=== PATIENT | female | born 1945 | race African-American/Black ===

== ENCOUNTER 2018-04-12 13:34 | Observation (INO) | payer OTHER ==
--- NOTE | 2018-04-12 14:14 | PDOC ---
History of Present Illness - General Chief Complaint: Chest Pain Stated Complaint: CHEST PAIN Time Seen by Provider: 04/12/18 14:13 Past History - Past Medical History COPD: No - Immunization History Immunization Up to Date: Yes - Suicide/Smoking/Psychosocial Hx Smoking History: Never smoked Hx Alcohol Use: No Drug/Substance Use Hx: No Substance Use Type: None *Physical Exam - Vital Signs Last Vital Signs Temp Pulse Resp BP Pulse Ox 98.6 F 95 H 20 190/89 H 100 04/12/18 13:42 04/12/18 13:42 04/12/18 13:42 04/12/18 13:42 04/12/18 13:42
--- NOTE | 2018-04-12 14:17 | PDOC ---
History of Present Illness - General Chief Complaint: Chest Pain Stated Complaint: CHEST PAIN Time Seen by Provider: 04/12/18 14:13 History Source: Patient Exam Limitations: No Limitations - History of Present Illness Initial Comments: 73 y/o female presenting to [facility] ER complaining of chest pain, nausea/vomiting, abdominal pain, and increased urinary frequency since Monday (09 Apr 2018 - 4 days). Chest pain originates at left anterior chest and radiates to left shoulder blade. It is made worse by palpation and movement of left upper extremity. It has been unchanged for the past four days. Denies history of similar. Vomited once on Monday with persistent nausea. Emesis described food particulates without blood or bile. Has been able to drink normally but taking small amount of solid food. Endorses epigastric and LUQ abdominal pain. Reports a chronic history of vague abdominal pain after eating certain foods. Endorses generalized fatigue, worse in the last few days. Possible CHF diagnosis at last stress test (Dec 2017). Did not follow up with her dye range tender or PCP following test. Prescribed Lasix but has not been taking it. Endorses decreased exertional tolerance and chronic bilateral leg swelling. Denies weight gain, orthopnea, paroxysmal nocturnal dyspnea Historically received care at [facility]. PCP: Dr. Carlyle Hoff Hx: - Never Smoker Medical Hx: - Possible CHF? - Benign positional vertigo - HTN - Chronic Bronchitis - Osteoarthritis - Heart Murmur, unable to recall type - GERD - Thyroid Nodules Surgical Hx: - Hysterectomy - Thyroid nodulectomy Past History - Past Medical History Allergies/Adverse Reactions: Allergies Allergy/AdvReac Type Severity Reaction Status Date / Time codeine Allergy Difficulty Verified 04/12/18 15:01 Breathing Home Medications: Ambulatory Orders Aspirin [ASA -] 81 mg PO DAILY 04/12/18 Budesonide/Formeterol Fumarate [SYMBICORT 160/4.5mcg -] 1 inh PO BID 04/12/18 Furosemide [Lasix] 20 mg PO DAILY 04/12/18 Lisinopril 10 mg PO DAILY 04/12/18 Nifedipine ER [Procardia Xl -] 30 mg PO DAILY 04/12/18 COPD: No - Immunization History Immunization Up to Date: Yes - Suicide/Smoking/Psychosocial Hx Smoking History: Never smoked Hx Alcohol Use: No Drug/Substance Use Hx: No Substance Use Type: None Review of Systems - Review of Systems Able to Perform ROS?: Yes Comments:: In addition to that documented in the HPI above, the additional ROS was obtained : Constitutional: Denies fevers, chills, diaphoresis, or syncope Eyes: Denies vision changes ENMT: Denies sore throat CV: Per HPI Resp: Denies acute SOB GI: Endorses vomiting. Denies diarrhea : Endorses urinary frequency. Denies dysuria, hematuria, or vaginal discharge. MSK: Denies recent trauma Skin: Denies new rashes Neuro: Denies new numbness, tingling, weakness, or headache Endocrine: Endorses polyuria. Denies polydipsia. Heme: Denies bleeding disorders *Physical Exam - Vital Signs Last Vital Signs Temp Pulse Resp BP Pulse Ox 98.6 F 95 H 20 190/89 H 100 04/12/18 13:42 04/12/18 13:42 04/12/18 13:42 04/12/18 13:42 04/12/18 13:42 - Physical Exam Comments: Constitutional: Adult female in no acute distress. Obese body habitus. Found semi-fowlers in hospital bed. Alert and oriented x4. Answered all questions appropriately and completely. Speech was non-labored, non-pressured. HEENT: Normocephalic. No obvious external signs of trauma. Hearing grossly normal. No nasal discharge. Neck is supple. Cardiovascular: Regular rate and regular rhythm. Systolic murmur loudest with inspiration. No rubs, clicks, or gallops. Peripheral pulses: Radial pulses full. No JVD. Respiratory: Breathing unlabored. Equal chest rise and fall. Clear to auscultation bilaterally. No stridor, no wheezing, no rhonchi. Gastrointestinal: abdomen is subjectively tender in LUQ and epigastric region ( no grimace, guarding, or withdrawal). Otherwise soft and non-distended. No pulsatile masses. No overlying skin lesions or obvious signs of trauma. Neuro: Alert and oriented. Moving all four extremities spontaneously. Gait: walking with cane. Observed walking through the department. Skin: Warm, dry, and intact. No bruising, rashes, or other lesions. No palpable nodules. Lymphatics: No cervical, supraclavicular, epitrochlear or inguinal nodes palpated. : No R or L CVA tenderness. Psych: Affect: appropriate. Mood: normal. ED Treatment Course - LABORATORY CBC & Chemistry Diagram: 04/12/18 15:16 04/12/18 15:16 Medical Decision Making - Medical Decision Making *Reviewed vital signs, nursing notes, and prior visit documentation (if available). 73 y/o female complaining of chest pain, abdominal pain, increased urinary frequency. Moderately suspicion for ACS. Afebrile. Vitals remarkable for hypertension. Physical exam as described above. D/D ACS, acute CHF exacerbation , arrhythmia, pneumonia, pulmonary edema, GERD, gastritis, pancreatitis, hepatitis, UTI. HEART Score for Major Cardiac Events from [employer] on 04/12/2018 RESULT SUMMARY: 4 points Moderate Score (4-6 points) Risk of MACE of 12-16.6%. INPUTS: History > 1 = Moderately suspicious EKG > 0 = Normal Age > 2 = ?65 Risk factors > 1 = 1-2 risk factors Initial troponin > 0 = ?normal limit EKG: Sinus rhythm with a ventricular rate of 96 bpm. Possible left axis deviation. Normal intervals. No ST segment elevation or depression. No hyperacute T waves. No pathologic Q waves. CXR unremarkable for acute cardiopulmonary process. No blunting of the costophrenic angles. Low suspicion for CHF or pulmonary edema. CBC unremarkable for anemia or leukocytosis. CMP unremarkable for electrolyte derangement. LFTs not elevated. BUN and Cr at baseline. eGFR of 54. Lipase not elevated. Low suspicion for pancreatitis. UA unremarkable for pyuria, leukocyte esterase, or nitrites. Low suspicion for UTI. Culture pending. 16:34 Remains hypertensive. Will order home Nifedipine as she normally takes this at this time. Given pts heart score and moderately suspicion ACS story, will admit pt for chest pain rule out. 18:04 Telephone consult with ANA Lu. Agrees to admit pt to telemetry on obs status for Dr. Cervantes. *DC/Admit/Observation/Transfer Diagnosis at time of Disposition: Chest pain in adult - Discharge Dispostion Condition at time of disposition: Stable Decision to Admit order: Yes - Referrals - Patient Instructions - Post Discharge Activity
[2018-04-12] MEDS ORDERED: LACTATED RINGERS SOLUTION 1000 ML INFUS.BAG IV ONE ×2 (14:50)
[2018-04-12] MEDS ORDERED: ONDANSETRON 4 MG/2 ML VIAL IVPUSH ONE (14:50)
[2018-04-12 15:26] LABS: BASO % 2.3 % (0-2.0); EOS % 1.6 % (0-4.5); HEMATOCRIT 37.7 % (32.4-45.2); HEMOGLOBIN 12.5 GM/dL (10.7-15.3); LYMPH % 26.8 % (8-40); MCH 30.5 pg (25.7-33.7); MCHC 33.2 g/dl (32.0-36.0); MEAN CELL VOLUME 91.8 fl (80-96); MEAN PLT VOLUME 8.1 fl (7.5-11.1); MONO % 6.1 % (3.8-10.2); NEUT % 63.2 % (42.8-82.8); PLATELET COUNT 205 K/MM3 (134-434); RDW 13.2 % (11.6-15.6); WHITE BLOOD COUNT 4.2 K/mm3 (4.0-10.0)
[2018-04-12] MEDS ORDERED: ONDANSETRON 4 MG/2 ML VIAL ONE (15:33)
[2018-04-12 15:48] LABS: URINE APPEARANCE CLEAR; URINE BILIRUBIN NEGATIVE (<2.0 mg/dL); URINE COLOR COLORLESS; URINE GLUCOSE (UA) NEGATIVE (NEGATIVE); URINE KETONE NEGATIVE (NEGATIVE); URINE LEUK ESTERASE NEGATIVE (NEGATIVE); URINE NITRITE NEGATIVE (NEGATIVE); URINE PROTEIN NEGATIVE (NEGATIVE); URINE UROBILINOGEN NEGATIVE mg/dL (0.2-1.0)
--- NOTE | 2018-04-12 16:00 | PDOC ---
Attending Attestation - Resident Resident Name: Steve Sarabia - HPI HPI: 04/12/18 16:35 Pt presents to the ED complaining of chest pain, nausea and vomiting and presyncope that started 4 days ago. Denies fever. Complains of vert mild epigastric pain. History of - Physicial Exam PE: 04/12/18 16:36 agree with resident exam. Patient is alert and oriented and in no acute distress. Heart has regular rate and rhythm. Lungs are clear. Abdomen is non tender, non distended. - Medical Decision Making 04/12/18 16:39 Pt presents to the ED complaining of nausea, vomiting and chest pain. Also complains of presyncope. Differential included ACS, less likely gastroenteritis , biliary disease, pancreatitis. Chemistries are normal and troponin is negative. EKG shows no evidence of acute ischemia. HEART score is 4. Will treat with ASA and admit for r/o ACS. BP is elevated. Will treat with nifedipine and reassess.
[2018-04-12 16:05] LABS: ALBUMIN 3.7 g/dl (3.4-5.0); ALK PHOS 62 U/L (45-117); ANION GAP 6 MMOL/L (8-16); BILIRUBIN,TOTAL 0.4 mg/dL (0.2-1); BLOOD UREA NITROGEN 12 mg/dL (7-18); CALCIUM 8.9 mg/dL (8.5-10.1); CHLORIDE 106 mmol/L (98-107); CO2 28 mmol/L (21-32); GLUCOSE,RANDOM 102 mg/dL (74-106); LIPASE 152 U/L (73-393); MAGNESIUM 1.8 mg/dL (1.8-2.4); PHOSPHOROUS 3.1 mg/dL (2.5-4.9); POTASSIUM 3.1 mmol/L (3.5-5.1); SGOT/AST 16 U/L (15-37); SGPT/ALT 19 U/L (13-61); SODIUM 140 mmol/L (136-145); TOT PROT 7.6 g/dl (6.4-8.2)
[2018-04-12] MEDS ORDERED: ASPIRIN 81 MG CHEWABLE TABLETS PO ONE (16:26)
[2018-04-12] MEDS ORDERED: NIFEdipine E.R. 30 MG TABLET (FP) PO ONE (16:34)
[2018-04-12] MEDS ORDERED: ASPIRIN 81 MG CHEWABLE TABLETS ONE (16:42)
[2018-04-12] MEDS ORDERED: NIFEdipine E.R. 30 MG TABLET (FP) ONE (16:42)
--- NOTE | 2018-04-12 17:59 | HP ---
CHIEF COMPLAINT: chest pain, nausea/vomiting, lightheaded PCP: Dr. Carlyle Petersen HISTORY OF PRESENT ILLNESS: Patient is a 73 year old female with a significant past medical history of CHF, hypertension, systolic heart murmur, GERD, thyroid nodule with nodule removal. She presents to the ED today with c/o of chest pain, nausea/vomiting, lightheadedness, epigastric pain and increased urinary frequency all since Monday. She reports decreased exercise tolerance. She has not sought any medical attention for these symptoms. She describes the chest pain as pressure that radiates to her left shoulder and epigastric region. Pain is constant since last 3 days. She also states that since Monday she has been experiencing vomiting with nausea and unable to keep down any foods. She is able to take down some fluids. She endorses fatigue and lightheadedness and feels like she is dehydrated. Denies any vomiting up of blood or bile. She reports that her last stress test was on December 2017 and was told that there are some "problems" found on the stress test. She did not follow up with her die maker bench stamping nor her PCP after the test. States she has been prescribed Lasix but has not taken it daily. Denies weight gain, orthopnea, paroxysmal nocturnal dyspnea. ER course was notable for: (1) trop negative (2) chest xray, abnormal: fullness right superior mediastinum, possible adenopathy versus thyroid enlargement.large heart, right tracheal deviation (3) bnp 160 PAST MEDICAL HISTORY: PAST SURGICAL HISTORY: Social History: Smoking: denies Alcohol: denies Drugs: denies Family History: Allergies codeine Allergy (Verified 04/12/18 15:01) Difficulty Breathing HOME MEDICATIONS: Home Medications Medication Instructions Recorded Aspirin [ASA -] 81 mg PO DAILY 04/12/18 Budesonide/Formeterol Fumarate 1 inh PO BID 04/12/18 [SYMBICORT 160/4.5mcg -] Furosemide [Lasix] 20 mg PO DAILY 04/12/18 Lisinopril 10 mg PO DAILY 04/12/18 Nifedipine ER [Procardia Xl -] 30 mg PO DAILY 04/12/18 PHYSICAL EXAMINATION Vital Signs - 24 hr 04/12/18 04/12/18 04/12/18 13:42 16:34 17:54 Temperature 98.6 F Pulse Rate 95 H Pulse Rate [ 76 64 Apical] Respiratory 20 16 16 Rate Blood Pressure 190/89 H Blood Pressure 184/88 H 162/82 [Right] O2 Sat by Pulse 100 100 100 Oximetry (%) GENERAL: Awake, alert, and fully oriented, in no acute distress. HEAD: Normal with no signs of trauma. EYES: Pupils equal, round and reactive to light, extraocular movements intact, sclera anicteric, conjunctiva clear. No lid lag. EARS, NOSE, THROAT: Ears normal, nares patent, oropharynx clear without exudates. Moist mucous membranes. NECK: Normal range of motion, supple without lymphadenopathy, JVD, or masses. LUNGS: Breath sounds equal, clear to auscultation bilaterally. No wheezes, and no crackles. No accessory muscle use. HEART: systolic heart murmur ABDOMEN: Soft, nontender, not distended, normoactive bowel sounds, no guarding, no rebound, no masses. No hepatomegaly or splenomegaly. MUSCULOSKELETAL: Normal range of motion at all joints. No bony deformities or tenderness. No CVA tenderness. UPPER EXTREMITIES: 2+ pulses, warm, well-perfused. No cyanosis. No clubbing. No peripheral edema. LOWER EXTREMITIES: mild bilateral ankle edema NEUROLOGICAL: Normal speech PSYCHIATRIC: Cooperative. Good eye contact. Appropriate mood and affect. SKIN: Warm, dry, normal turgor, no rashes or lesions noted, normal capillary refill. Laboratory Results - last 24 hr 04/12/18 04/12/18 04/12/18 15:16 15:16 15:16 WBC 4.2 RBC 4.10 Hgb 12.5 Hct 37.7 MCV 91.8 MCH 30.5 MCHC 33.2 RDW 13.2 Plt Count 205 MPV 8.1 Absolute Neuts (auto) 2.7 Neutrophils % 63.2 Lymphocytes % 26.8 Monocytes % 6.1 Eosinophils % 1.6 Basophils % 2.3 H Nucleated RBC % 0 Sodium 140 Potassium 3.1 L Chloride 106 Carbon Dioxide 28 Anion Gap 6 L BUN 12 Creatinine 1.0 Creat Clearance w eGFR 54.05 Random Glucose 102 Calcium 8.9 Phosphorus 3.1 Magnesium 1.8 Total Bilirubin 0.4 AST 16 ALT 19 Alkaline Phosphatase 62 Troponin I < 0.02 Total Protein 7.6 Albumin 3.7 Lipase 152 Urine Color Colorless Urine Appearance Clear Urine pH 7.0 Ur Specific [place] 1.003 L Urine Protein Negative Urine Glucose (UA) Negative Urine Ketones Negative Urine Blood Negative Urine Nitrite Negative Urine Bilirubin Negative Urine Urobilinogen Negative Ur Leukocyte Esterase Negative ASSESSMENT/PLAN: Patient is a 73 year old female with a significant past medical history of CHF, hypertension, systolic heart murmur, GERD, thyroid nodule with nodule removal. She presents to the ED today with c/o of chest pain, nausea/vomiting, lightheadedness, epigastric pain and increased urinary frequency all since Monday. She reports decreased exercise tolerance. imaging chest xray, abnormal: fullness right superior mediastinum, possible adenopathy versus thyroid enlargement.large heart, right tracheal deviation Cardiology Rule out acs Trend troponins Echo lipid panel [id number] monitor on tele cardiology consult TSH Abdominal discomfort/pain Start on clears start PPI advance diet as tolerated fen full code
[2018-04-12 18:20] LABS: N-TERMINAL BNP 160.2 pg/ml (5-450)
[2018-04-12] MEDS ORDERED: PANTOPRAZOLE 40 MG TABLET (FP) PO ONE (19:08)
[2018-04-12] MEDS ORDERED: POTASSIUM CHLORIDE ORAL LIQUID 20 MEQ/15 ML PO ONE (19:45)
[2018-04-12] MEDS ORDERED: PANTOPRAZOLE 40 MG TABLET (FP) ONE (19:49)
[2018-04-12] MEDS ORDERED: POTASSIUM CHLORIDE TABS 20 MEQ TABLET.ER (FP) PO ONE (19:49)
[2018-04-12 20:34] VITALS: BMI 38.3
[2018-04-12] MEDS ORDERED: FLU VACCINE QUAD 60 MCG/0.5 ML (MDV 18-19) IM ONE (20:37)
[2018-04-12] MEDS: BUDESONIDE/FORMETEROL FUMARATE 160/4.5 mcg INHALER IH SCH (21:09)
--- NOTE | 2018-04-13 09:30 | ECHO ---
Name: PRECIOUS BROCK Exam:Adult Echocardiogram Study Date: 04/13/2018 06:59 AM Age: 73 yrs Reason For Study: LIGHTNESS,SOB Height: 59 in Weight: 196 lb BSA: 1.8 m2 MMode/2D Measurements & Calculations IVSd: 1.1 cm Ao root diam: 3.3 cm LVIDd: 5.2 cm LA dimension: 3.8 cm LVIDs: 3.1 cm ACS: 1.7 cm LVPWd: 0.90 cm IVSs: 1.3 cm LVPWs: 1.2 cm EDV(Teich): 128.6 ml ESV(Teich): 38.3 ml Doppler Measurements & Calculations MV E max ayush: 92.1 cm/sec Ao V2 max: 158.4 cm/sec MV A max ayush: 102.7 cm/sec Ao max P.0 mmHg MV E/A: 0.90 Ao V2 mean: 103.4 cm/sec Ao mean P.8 mmHg Ao V2 VTI: 36.0 cm AI P1/2t: 512.9 msec AI max ayush: 508.0 cm/sec MR max ayush: 466.9 cm/sec AI max P.5 mmHg MR max P.3 mmHg AI dec slope: 290.0 cm/sec2 TR max ayush: 303.6 cm/sec PI end-d ayush: 85.5 cm/sec TR max P.9 mmHg Med Peak E' Ayush: 13.5 cm/sec Med E/e': 6.8 Lat Peak E' Ayush: 7.2 cm/sec Lat E/e': 12.7 Left Ventricle Left ventricular systolic function is normal. Ejection Fraction = 50-55%. Right Ventricle The right ventricle is normal in size and function. Atria Normal left and right atrial size and function. Mitral Valve There is mild mitral annular calcification. There is no mitral valve stenosis. There is mild mitral regurgitation. Tricuspid Valve The tricuspid valve is normal in structure and function. There is moderate tricuspid regurgitation. R ight ventricular systolic pressure is elevated at 30-40mmHg. Aortic Valve There is mild aortic sclerosis.;. No hemodynamically significant valvular aortic stenosis. Mild aorti c regurgitation. Pulmonic Valve The pulmonic valve is not well seen, but is grossly normal. There is no pulmonic valvular stenosis. M ild pulmonic valvular regurgitation. Great Vessels The aortic root is normal size. Pericardium/Pleura Trivial pericardial effusion not hemodynamically significant. Interpretation Summary Left ventricular systolic function is normal. Ejection Fraction = 50-55%. The right ventricle is normal in size and function. There is mild mitral annular calcification. There is mild mitral regurgitation. There is moderate tricuspid regurgitation. Right ventricular systolic pressure is elevated at 30-40mmHg. There is mild aortic sclerosis.; Mild aortic regurgitation. Trivial pericardial effusion not hemodynamically significant MD Lacy *Aristides 04/13/2018 09:30 AM
[2018-04-13] MEDS: BUDESONIDE/FORMETEROL FUMARATE 160/4.5 mcg INHALER IH SCH (09:37)
[2018-04-13] MEDS ORDERED: ASPIRIN 81 MG CHEWABLE TABLETS PO SCH (10:00)
[2018-04-13] MEDS ORDERED: NIFEdipine E.R. 30 MG TABLET (FP) PO SCH (10:00)
[2018-04-13] MEDS ORDERED: LISINOPRIL 10 MG TABLET (FP) PO SCH (10:00)
[2018-04-13] MEDS ORDERED: FUROSEMIDE 20 MG TABLET (FP) PO SCH (10:00)
[2018-04-13 10:20] LABS: BASO % 1.4 % (0-2.0); EOS % 3.9 % (0-4.5); HEMATOCRIT 38.1 % (32.4-45.2); HEMOGLOBIN 12.4 GM/dL (10.7-15.3); LYMPH % 37.2 % (8-40); MCH 30.2 pg (25.7-33.7); MCHC 32.5 g/dl (32.0-36.0); MEAN CELL VOLUME 92.7 fl (80-96); MEAN PLT VOLUME 8.3 fl (7.5-11.1); MONO % 8.1 % (3.8-10.2); NEUT % 49.4 % (42.8-82.8); PLATELET COUNT 204 K/MM3 (134-434); RBC 4.11 M/mm3 (3.60-5.2); RDW 13.2 % (11.6-15.6); WHITE BLOOD COUNT 4.5 K/mm3 (4.0-10.0)
[2018-04-13 11:06] LABS: ALBUMIN 3.7 g/dl (3.4-5.0); ALK PHOS 59 U/L (45-117); ANION GAP 10 MMOL/L (8-16); BILIRUBIN,TOTAL 0.7 mg/dL (0.2-1); BLOOD UREA NITROGEN 12 mg/dL (7-18); CHLORIDE 105 mmol/L (98-107); CHOLESTEROL 274 mg/dL (50-200); CO2 27 mmol/L (21-32); CREATININE 1.2 mg/dL (0.55-1.3); GLUCOSE,RANDOM 94 mg/dL (74-106); HDL CHOLESTEROL 55 mg/dL (40-60); MAGNESIUM 1.8 mg/dL (1.8-2.4); POTASSIUM 3.3 mmol/L (3.5-5.1); SGOT/AST 11 U/L (15-37); SGPT/ALT 17 U/L (13-61); SODIUM 142 mmol/L (136-145); TOT PROT 7.3 g/dl (6.4-8.2); TRIGLYCERIDES 79 mg/dL (0-150)
--- NOTE | 2018-04-13 11:24 | CON.CARD ---
Cardiology Consult (text) - Consultation Consultation Note: cc: n/v, epigastric pain, dizzy hpi: 73 f hx dchf, htn here with n/v, epigastric pain, dizzy. Yesterday started to feel dizzy then had n/v and epigastric burning pain. No sob palps loc pnd orthopnea le edema. Today still with upset stomach. pmh: per hpi psh: nc social: no tob fam: no premature cad, scd ros: per hpi; no fever, diarrhea, gib hematuria dysuria muscle pain wt loss meds: Home Medications Medication Instructions Recorded Aspirin [ASA -] 81 mg PO DAILY 04/12/18 Budesonide/Formeterol Fumarate 1 inh PO BID 04/12/18 [SYMBICORT 160/4.5mcg -] Furosemide [Lasix] 20 mg PO DAILY 04/12/18 Lisinopril 10 mg PO DAILY 04/12/18 Nifedipine ER [Procardia Xl -] 30 mg PO DAILY 04/12/18 pe: Vital Signs Period Temp Pulse Resp BP Sys/Hyde Pulse Ox Last 24 Hr 97.2 F-98.6 F 60-95 16-20 136-190/66-104 96-100 nad no jvd rrr s1s2 +m, no r/g aaox3 cta bl nl eff no le e/c/c pos dp pt no carotid bruits no diaphoresis jaundice abd mild tender in epigastric area, nd pos bs +chest wall tenderness Laboratory Last Values WBC 4.5 K/mm3 (4.0-10.0) 04/13/18 09:46 RBC 4.11 M/mm3 (3.60-5.2) 04/13/18 09:46 Hgb 12.4 GM/dL (10.7-15.3) 04/13/18 09:46 Hct 38.1 % (32.4-45.2) 04/13/18 09:46 MCV 92.7 fl (80-96) 04/13/18 09:46 MCH 30.2 pg (25.7-33.7) 04/13/18 09:46 MCHC 32.5 g/dl (32.0-36.0) 04/13/18 09:46 RDW 13.2 % (11.6-15.6) 04/13/18 09:46 Plt Count 204 K/MM3 (134-434) 04/13/18 09:46 MPV 8.3 fl (7.5-11.1) 04/13/18 09:46 Absolute Neuts (auto) 2.2 K/mm3 (1.5-8.0) 04/13/18 09:46 Neutrophils % 49.4 % (42.8-82.8) D 04/13/18 09:46 Lymphocytes % 37.2 % (8-40) D 04/13/18 09:46 Monocytes % 8.1 % (3.8-10.2) 04/13/18 09:46 Eosinophils % 3.9 % (0-4.5) D 04/13/18 09:46 Basophils % 1.4 % (0-2.0) 04/13/18 09:46 Nucleated RBC % 0 % (0-0) 04/13/18 09:46 Sodium 142 mmol/L (136-145) 04/13/18 09:40 Potassium 3.3 mmol/L (3.5-5.1) L 04/13/18 09:40 Chloride 105 mmol/L (98-107) 04/13/18 09:40 Carbon Dioxide 27 mmol/L (21-32) 04/13/18 09:40 Anion Gap 10 MMOL/L (8-16) 04/13/18 09:40 BUN 12 mg/dL (7-18) 04/13/18 09:40 Creatinine 1.2 mg/dL (0.55-1.3) 04/13/18 09:40 Creat Clearance w eGFR 43.80 (>60) 04/13/18 09:40 Random Glucose 94 mg/dL (74-106) 04/13/18 09:40 Hemoglobin A1c % 5.7 % (4.2-6.3) 04/13/18 09:40 Calcium 9.0 mg/dL (8.5-10.1) 04/13/18 09:40 Phosphorus 3.1 mg/dL (2.5-4.9) 04/12/18 15:16 Magnesium 1.8 mg/dL (1.8-2.4) 04/13/18 09:40 Total Bilirubin 0.7 mg/dL (0.2-1) 04/13/18 09:40 AST 11 U/L (15-37) L 04/13/18 09:40 ALT 17 U/L (13-61) 04/13/18 09:40 Alkaline Phosphatase 59 U/L (45-117) 04/13/18 09:40 Troponin I < 0.02 ng/ml (0.00-0.05) 04/13/18 02:15 B-Natriuretic Peptide 160.2 pg/ml (5-450) 04/12/18 15:16 Total Protein 7.3 g/dl (6.4-8.2) 04/13/18 09:40 Albumin 3.7 g/dl (3.4-5.0) 04/13/18 09:40 Triglycerides 79 mg/dL (0-150) 04/13/18 09:40 Cholesterol 274 mg/dL (50-200) H 04/13/18 09:40 Total LDL Cholesterol 203 mg/dL (5-100) H 04/13/18 09:40 HDL Cholesterol 55 mg/dL (40-60) 04/13/18 09:40 Lipase 152 U/L (73-393) 04/12/18 15:16 TSH 0.70 uIU/ml (0.358-3.74) 04/13/18 09:46 Urine Color Colorless 04/12/18 15:16 Urine Appearance Clear 04/12/18 15:16 Urine pH 7.0 (5.0-8.0) 04/12/18 15:16 Ur Specific [place] 1.003 (1.010-1.035) L 04/12/18 15:16 Urine Protein Negative (NEGATIVE) 04/12/18 15:16 Urine Glucose (UA) Negative (NEGATIVE) 04/12/18 15:16 Urine Ketones Negative (NEGATIVE) 04/12/18 15:16 Urine Blood Negative (NEGATIVE) 04/12/18 15:16 Urine Nitrite Negative (NEGATIVE) 04/12/18 15:16 Urine Bilirubin Negative (<2.0 mg/dL) 04/12/18 15:16 Urine Urobilinogen Negative mg/dL (0.2-1.0) 04/12/18 15:16 Ur Leukocyte Esterase Negative (NEGATIVE) 04/12/18 15:16 ecg: sr, nl intervals, no ischemic changes cxr: clear lungs echo 03/2018: nl lv/rv, mild mr, mod tr, mild ar, mild pr, rvsp 30-40 tele: sr a/p: 73 f hx dchf, htn here with n/v, epigastric pain, dizzy. epigastric pain, n/v, dizzy: -does not seem cardiac, more GI related -trops neg x3, ecg and echo unremarkable -reproducible pain on palpation of abd and chest -pt reports abnl stress test with her cardio at [facility] few mos ago, plan had been med management per pt, continue outpt f/u. chronic diastolic chf: -stable, cont po lasix htn: -cont home meds cardiac rivera stable
[2018-04-13] MEDS ORDERED: POTASSIUM CHLORIDE TABS 20 MEQ TABLET.ER (FP) PO ONE (15:30)
--- NOTE | 2018-04-13 15:30 | DS ---
Physical Exam: SUBJECTIVE: Patient seen and examined OBJECTIVE: Vital Signs Period Temp Pulse Resp BP Sys/Hyde Pulse Ox Last 24 Hr 97.2 F-98.5 F 60-76 16-20 136-188/66-104 96-100 PHYSICAL EXAM GENERAL: The patient is awake, alert, and fully oriented, in no acute distress. HEAD: Normal with no signs of trauma. EYES: PERRL, extraocular movements intact, sclera anicteric, conjunctiva clear. ENT: Ears normal, nares patent, oropharynx clear without exudates, moist mucous membranes. NECK: Trachea midline, full range of motion, supple. LUNGS: Breath sounds equal, clear to auscultation bilaterally, no wheezes, no crackles, no accessory muscle use. HEART: Regular rate and rhythm, S1, S2 without murmur, rub or gallop. ABDOMEN: Soft, nontender, nondistended, normoactive bowel sounds, no guarding, no rebound, no hepatosplenomegaly, no masses. EXTREMITIES: 2+ pulses, warm, well-perfused, no edema. NEUROLOGICAL: Cranial nerves II through XII grossly intact. Normal speech, gait not observed. PSYCH: Normal mood, normal affect. SKIN: Warm, dry, normal turgor, no rashes or lesions noted. LABS Laboratory Results - last 24 hr 04/12/18 04/12/18 04/12/18 15:16 15:16 20:55 WBC RBC Hgb Hct MCV MCH MCHC RDW Plt Count MPV Absolute Neuts (auto) Neutrophils % Lymphocytes % Monocytes % Eosinophils % Basophils % Nucleated RBC % Sodium 140 Potassium 3.1 L Chloride 106 Carbon Dioxide 28 Anion Gap 6 L BUN 12 Creatinine 1.0 Creat Clearance w eGFR 54.05 Random Glucose 102 Hemoglobin A1c % Calcium 8.9 Phosphorus 3.1 Magnesium 1.8 Total Bilirubin 0.4 AST 16 ALT 19 Alkaline Phosphatase 62 Troponin I < 0.02 < 0.02 B-Natriuretic Peptide 160.2 Total Protein 7.6 Albumin 3.7 Triglycerides Cholesterol Total LDL Cholesterol HDL Cholesterol Lipase 152 TSH Urine Color Colorless Urine Appearance Clear Urine pH 7.0 Ur Specific [place] 1.003 L Urine Protein Negative Urine Glucose (UA) Negative Urine Ketones Negative Urine Blood Negative Urine Nitrite Negative Urine Bilirubin Negative Urine Urobilinogen Negative Ur Leukocyte Esterase Negative 11/16/18 11/16/18 11/16/18 02:15 09:40 09:40 WBC RBC Hgb Hct MCV MCH MCHC RDW Plt Count MPV Absolute Neuts (auto) Neutrophils % Lymphocytes % Monocytes % Eosinophils % Basophils % Nucleated RBC % Sodium 142 Potassium 3.3 L Chloride 105 Carbon Dioxide 27 Anion Gap 10 BUN 12 Creatinine 1.2 Creat Clearance w eGFR 43.80 Random Glucose 94 Hemoglobin A1c % 5.7 Calcium 9.0 Phosphorus Magnesium 1.8 Total Bilirubin 0.7 AST 11 L ALT 17 Alkaline Phosphatase 59 Troponin I < 0.02 B-Natriuretic Peptide Total Protein 7.3 Albumin 3.7 Triglycerides 79 Cholesterol 274 H Total LDL Cholesterol 203 H HDL Cholesterol 55 Lipase TSH Urine Color Urine Appearance Urine pH Ur Specific [place] Urine Protein Urine Glucose (UA) Urine Ketones Urine Blood Urine Nitrite Urine Bilirubin Urine Urobilinogen Ur Leukocyte Esterase 04/13/18 04/13/18 09:46 09:46 WBC 4.5 RBC 4.11 Hgb 12.4 Hct 38.1 MCV 92.7 MCH 30.2 MCHC 32.5 RDW 13.2 Plt Count 204 MPV 8.3 Absolute Neuts (auto) 2.2 Neutrophils % 49.4 D Lymphocytes % 37.2 D Monocytes % 8.1 Eosinophils % 3.9 D Basophils % 1.4 Nucleated RBC % 0 Sodium Potassium Chloride Carbon Dioxide Anion Gap BUN Creatinine Creat Clearance w eGFR Random Glucose Hemoglobin A1c % Calcium Phosphorus Magnesium Total Bilirubin AST ALT Alkaline Phosphatase Troponin I B-Natriuretic Peptide Total Protein Albumin Triglycerides Cholesterol Total LDL Cholesterol HDL Cholesterol Lipase TSH 0.70 Urine Color Urine Appearance Urine pH Ur Specific [place] Urine Protein Urine Glucose (UA) Urine Ketones Urine Blood Urine Nitrite Urine Bilirubin Urine Urobilinogen Ur Leukocyte Esterase HOSPITAL COURSE: Date of Admission:04/12/18 Date of Discharge: 04/13/18 Discharge Summary Reason For Visit: CHEST PAIN Current Active Problems Chest pain in adult (Acute) Condition: Improved - Instructions Disposition: HOME - Home Medications Comprehensive Discharge Medication List: Ambulatory Orders Aspirin [ASA -] 81 mg PO DAILY 04/12/18 Budesonide/Formeterol Fumarate [SYMBICORT 160/4.5mcg -] 1 inh PO BID 04/12/18 Furosemide [Lasix] 20 mg PO DAILY 04/12/18 Lisinopril 10 mg PO DAILY 04/12/18 Nifedipine ER [Procardia Xl -] 30 mg PO DAILY 04/12/18
[2018-04-13] MEDS ORDERED: RANITIDINE HCL 150 MG TABLET (FP) PO ONE (15:45)
[2018-04-13 22:53] VITALS: BP 148/78; PULSE 64; TEMP 98
--- NOTE | 2018-04-16 23:51 | EKG ---
Test Reason : Blood Pressure : / mmHG Vent. Rate : 096 BPM Atrial Rate : 096 BPM P-R Int : 188 ms QRS Dur : 088 ms QT Int : 366 ms P-R-T Axes : 055 -35 047 degrees QTc Int : 462 ms NORMAL SINUS RHYTHM POSSIBLE LEFT ATRIAL ENLARGEMENT LEFT AXIS DEVIATION LEFT VENTRICULAR HYPERTROPHY ABNORMAL ECG WHEN COMPARED WITH ECG OF 26-JAN-1999 11:47, NO SIGNIFICANT CHANGE WAS FOUND Confirmed by GANESH CRUMP, ROBINSON ([id number]) on 04/16/2018 11:51:10 PM Referred By: Confirmed By:ROBINSON ANDERSEN MD
== END 2018-04-13 19:40 | disposition home or self-care (01) ==
LOC: JER 13:34 → JERBED 17:44 → J4W 20:37
PROVIDERS: ADMIT Internal Medicine; ATTEND Nurse Practitioner Family
PROC: 3E0337Z Introduction of Electrolytic and Water Balance Substance into Peripheral Vein, Percutaneous Approach (ICD-10-PCS; principal; 2018-04-12)
PROC: 3E033GC Introduction of Other Therapeutic Substance into Peripheral Vein, Percutaneous Approach (ICD-10-PCS; 2018-04-12)
DX: R07.89 Other chest pain (principal); I11.0 Hypertensive heart disease with heart failure; I50.32 Chronic diastolic (congestive) heart failure; R01.1 Cardiac murmur, unspecified; M19.90 Unspecified osteoarthritis, unspecified site; K21.9 Gastro-esophageal reflux disease without esophagitis; Z90.710 Acquired absence of both cervix and uterus; Z88.6 Allergy status to analgesic agent; Z79.82 Long term (current) use of aspirin
CPT/HCPCS: 36415; 71046-TC-FY; 80053; 80061; 81003; 83036; 83690; 83721; 83735; 83880; 84100; 84443; 84484; 85025; 87086; 93005; 93010; 93306-TC; 96374; 99284-25; G0378

== ENCOUNTER 2019-01-09 15:37 | Emergency (ER) | payer OTHER ==
--- NOTE | 2019-01-09 15:41 | PDOC ---
Rapid Medical Evaluation Time Seen by Provider: 01/09/19 15:40 Medical Evaluation: Allergies Allergy/AdvReac Type Severity Reaction Status Date / Time codeine Allergy Difficulty Verified 04/12/18 15:01 Breathing 01/09/19 15:40 HPI: Right knee pain x1 day PE: No gross deficits ORDERS: nothing Discharge Disposition - Diagnosis Knee pain - Referrals - Patient Instructions - Post Discharge Activity
[2019-01-09 15:47] VITALS: BP 185/78; PULSE 87; TEMP 98.4; BMI 40.4
[2019-01-09] MEDS ORDERED: KETOROLAC TROMETHAMINE 30 MG/1 ML VIAL IM ONE (17:36)
[2019-01-09] MEDS ORDERED: ACETAMINOPHEN 325 MG TABLET (FP) PO ONE (17:36)
[2019-01-09] MEDS ORDERED: ACETAMINOPHEN 325 MG TABLET (FP) ONE (17:40)
[2019-01-09] MEDS ORDERED: KETOROLAC TROMETHAMINE 30 MG/1 ML VIAL ONE (17:41)
--- NOTE | 2019-01-09 17:41 | PDOC ---
History of Present Illness - General Chief Complaint: Pain Stated Complaint: Rt LEG PAIN Time Seen by Provider: 01/09/19 15:40 History Source: Patient - History of Present Illness Occurred: reports: other Severity: Yes: severe Lower Extremity Pain Location: right: knee Past History - Past Medical History Allergies/Adverse Reactions: Allergies Allergy/AdvReac Type Severity Reaction Status Date / Time codeine Allergy Difficulty Verified 01/09/19 15:41 Breathing Home Medications: Ambulatory Orders Aspirin [ASA -] 81 mg PO DAILY 04/12/18 Budesonide/Formeterol Fumarate [SYMBICORT 160/4.5mcg -] 1 inh PO BID 04/12/18 Furosemide [Lasix] 20 mg PO DAILY 04/12/18 Lisinopril 10 mg PO DAILY 04/12/18 Nifedipine ER [Procardia XL -] 30 mg PO DAILY 04/12/18 Acetaminophen [Tylenol -] 1,000 mg PO Q6H #30 tablet 01/09/19 Lisinopril 20 mg PO BID #60 tablet 01/09/19 COPD: No - Immunization History Immunization Up to Date: Yes - Suicide/Smoking/Psychosocial Hx Smoking History: Never smoked Hx Alcohol Use: No Drug/Substance Use Hx: No Substance Use Type: None Review of Systems - Review of Systems Constitutional: No: Chills, Fever Respiratory: No: Shortness of Breath Cardiac (ROS): No: Chest Pain, Palpitations Musculoskeletal: Yes: Joint Pain. No: Joint Swelling *Physical Exam - Vital Signs Last Vital Signs Temp Pulse Resp BP Pulse Ox 98.4 F 87 18 185/78 H 100 01/09/19 15:43 01/09/19 15:43 01/09/19 15:43 01/09/19 15:43 01/09/19 15:43 - Physical Exam General Appearance: Yes: Appropriately Dressed, Mild Distress HEENT: positive: Normal Voice Neck: positive: Supple Respiratory/Chest: positive: Lungs Clear, Normal Breath Sounds. negative: Respiratory Distress Cardiovascular: positive: Regular Rate, S1, S2 Extremity: positive: Normal Inspection, Normal Range of Motion, Tender, Other ( pain to R knee w/ ROM, no sig joint swelling, no hot, red joint, limping in ED) . negative: Swelling Integumentary: positive: Dry, Warm Neurologic: positive: Fully Oriented, Alert, Normal Mood/Affect ED Treatment Course - RADIOLOGY Radiology Studies Ordered: Category Date Time Status KNEE 2 POS-RIGHT [RAD] Stat Radiology 01/09/19 17:35 Ordered DUPLEX VASCUL US-1 LEG [US] Stat Ultrasound 01/09/19 17:35 Ordered Medical Decision Making - Medical Decision Making 01/09/19 17:37 73 yo F, h/o HTN, arthritis, here w/ R knee pain x several days, constant, severe, radiates to thigh and worse w/ ROM and weight bearing. Taking OTC meds w / no relief. Has had similar pain in past to knee but not this severe. Taking OTC meds w/ no relief. No trauma. States last week she had several long distance driving trips. No calf pain, CP, SOB or palpitations. No f/c See exam M/l MSK R knee pain, i.e arthritis No e/o infection DVT considered given several long distance driving trips last week No resp sxs Stable and well juan miguel and exam only remarkable for severe pain to R knee w/ ROM -pain control -US -XR -anticipate dc w/ PMD f/u 01/09/19 19:58 XR w/ suprapatellar effusion w/ arthritic changes per radiology. US neg. Pt improved w/ meds. Able to bear weight w/ cane. Informs me that she ran out of her BP meds 2 weeks ago. BP elevated here but asx from BP standpoint. Dc w/ pain control, meds refill and PMD f/u *DC/Admit/Observation/Transfer Diagnosis at time of Disposition: Knee pain Qualifiers: Chronicity: acute Laterality: right Qualified Code(s): M25.561 - Pain in right knee - Discharge Dispostion Disposition: HOME Condition at time of disposition: Improved - Prescriptions Prescriptions: Acetaminophen [Tylenol -] 1,000 mg PO Q6H #30 tablet Lisinopril 20 mg PO BID #60 tablet - Referrals - Patient Instructions Printed Discharge Instructions: DI for Knee Pain Additional Instructions: Your xray showed arthritis and fluid in your joint Take tylenol for pain Resume you high blood pressure meds and follow up with your PMD - Post Discharge Activity
== END 2019-01-09 19:59 | disposition home or self-care (01) ==
LOC: JERFT 15:37 → JER 15:37 → JERFT 19:59
PROC: 3E0233Z Introduction of Anti-inflammatory into Muscle, Percutaneous Approach (ICD-10-PCS; principal; 2019-01-09)
DX: M25.561 Pain in right knee (principal); I10 Essential (primary) hypertension
CPT/HCPCS: 73560-TC-RT-FY; 93971-TC; 99281-25

== ENCOUNTER 2022-06-27 15:37 | Emergency (ER) | payer OTHER ==
[2022-06-27 15:47] VITALS: BMI 28.8
[2022-06-27] MEDS ORDERED: AZITHROMYCIN 250 MG TABLET PO ONE (18:22)
[2022-06-27] MEDS ORDERED: AZITHROMYCIN 250 MG TABLET ONE (18:26)
[2022-06-27 18:44] VITALS: BP 150/75; PULSE 85; RESP 18; TEMP 98
== END 2022-06-27 18:43 | disposition home or self-care (01) ==
LOC: JERFT 15:37 → JER 15:37
DX: J40 Bronchitis, not specified as acute or chronic (principal)
CPT/HCPCS: 0241U-QW; 71046-TC-FY; 99284-25

== ENCOUNTER 2023-08-11 13:38 | Emergency (ER) | payer OTHER ==
[2023-08-11 13:55] VITALS: BMI 27.0
[2023-08-11 16:45] LABS: BASO % 3.1 % (0-2.0); EOS % 6.1 % (0-4.5); HEMOGLOBIN 12.3 GM/dL (10.7-15.3); LYMPH % 30.7 % (8-40); MCH 32.5 pg (25.7-33.7); MCHC 35.2 g/dl (32.0-36.0); MEAN CELL VOLUME 92.3 fl (80-96); MEAN PLT VOLUME 7.4 fl (7.5-11.1); MONO % 8.7 % (3.8-10.2); NEUT % 51.4 % (42.8-82.8); PLATELET COUNT 183 10^3/uL (134-434); RBC 3.79 M/mm3 (3.60-5.2); RDW 13.4 % (11.6-15.6); WHITE BLOOD COUNT 3.3 K/mm3 (4.0-10.0)
[2023-08-11 16:52] LABS: INR 1.05 (0.83-1.09); PROTHROMBIN TIME (PATIENT) 12.2 SEC (9.7-13.0)
[2023-08-11 16:55] LABS: ACTIVATED PTT 32.2 SECONDS (25.2-36.5)
[2023-08-11 17:07] LABS: POTASSIUM 3.9 mmol/L (3.5-5.1)
[2023-08-11 17:09] LABS: CALCIUM 9.4 mg/dL (8.5-10.1)
[2023-08-11 17:10] LABS: ALBUMIN 3.5 g/dl (3.4-5.0); BLOOD UREA NITROGEN 24.8 mg/dL (7-18)
[2023-08-11 17:13] LABS: CREATININE 1.2 mg/dL (0.55-1.3)
[2023-08-11 17:15] LABS: BILIRUBIN,TOTAL 0.4 mg/dL (0.2-1); TOT PROT 7.1 g/dl (6.4-8.2)
[2023-08-11] MEDS ORDERED: MECLIZINE HCL 25 MG TABLET (FP) ONE (17:50)
[2023-08-11] MEDS: SODIUM CHLORIDE 0.9% 500 ML INFUS.BAG IV ONE (18:06)
[2023-08-11] MEDS: MECLIZINE HCL 25 MG TABLET (FP) PO ONE (18:06)
[2023-08-11 22:23] VITALS: BP 158/73; PULSE 63; RESP 18; TEMP 98.2
== END 2023-08-12 02:41 | disposition home or self-care (01) ==
LOC: JER 13:38
DX: R07.9 Chest pain, unspecified (principal); M79.602 Pain in left arm; R42 Dizziness and giddiness
CPT/HCPCS: 36415; 71045-TC-FY; 80053; 84484; 85025; 85610; 85730; 86850; 86900; 86901; 93005; 93010; 99285-25

== ENCOUNTER 2023-12-23 11:08 | Inpatient (IN) | payer OTHER ==
[2023-12-23] MEDS ORDERED: ACETAMINOPHEN 325 MG TABLET (FP) ONE ×2 (12:35→21:46)
[2023-12-23] MEDS: ACETAMINOPHEN 500 MG TABLET (FP) PO ONE (12:49)
[2023-12-23 14:49] LABS: BASO % 2.4 % (0-2.0); HEMATOCRIT 34.7 % (32.4-45.2); HEMOGLOBIN 11.9 GM/dL (10.7-15.3); LYMPH % 28.8 % (8-40); MCHC 34.3 g/dl (32.0-36.0); MEAN CELL VOLUME 93.3 fl (80-96); MEAN PLT VOLUME 7.6 fl (7.5-11.1); MONO % 8.5 % (3.8-10.2); NEUT % 55.3 % (42.8-82.8); PLATELET COUNT 200 10^3/uL (134-434); RBC 3.72 M/mm3 (3.60-5.2); RDW 13.4 % (11.6-15.6); WHITE BLOOD COUNT 3.6 K/mm3 (4.0-10.0)
[2023-12-23 15:37] LABS: ALBUMIN 3.5 g/dl (3.4-5.0); BILIRUBIN,TOTAL 0.5 mg/dL (0.2-1); BLOOD UREA NITROGEN 14.1 mg/dL (7-18); CALCIUM 9.2 mg/dL (8.5-10.1); POTASSIUM 3.8 mmol/L (3.5-5.1)
[2023-12-23] MEDS: LIDOCAINE 5% TOPICAL PATCH TP SCH (16:46)
[2023-12-23] MEDS ORDERED: LIDOCAINE 4% PATCH TP ONE (16:50)
[2023-12-23] MEDS: ACETAMINOPHEN 325 MG TABLET (FP) PO PRN (21:55)
[2023-12-23] MEDS: LIDOCAINE PATCH REMOVAL MC SCH (22:01)
[2023-12-23] MEDS ORDERED: HEPARIN NA (PORCINE) 5,000 UNITS/ML 1ML VIAL ONE (22:16)
[2023-12-23] MEDS: HEPARIN NA (PORCINE) 5,000 UNITS/ML 1ML VIAL SQ SCH (22:22)
[2023-12-24] MEDS: ACETAMINOPHEN 1000 MG/100 ML BAG IVPB ONE (03:58)
[2023-12-24] MEDS ORDERED: amLODIPine BESYLATE 10 MG TABLET (FP) ONE (08:51)
[2023-12-24] MEDS: LIDOCAINE 5% TOPICAL PATCH TP SCH (09:27)
[2023-12-24] MEDS: amLODIPine BESYLATE 10 MG TABLET (FP) PO SCH (09:28)
[2023-12-24 13:44] VITALS: BMI 28.8
[2023-12-24] MEDS: LIDOCAINE PATCH REMOVAL MC SCH (22:03)
[2023-12-25 09:30] LABS: POTASSIUM 3.7 mmol/L (3.5-5.1)
[2023-12-25 09:32] LABS: CALCIUM 8.8 mg/dL (8.5-10.1)
[2023-12-25 09:33] LABS: BLOOD UREA NITROGEN 12.8 mg/dL (7-18)
[2023-12-26 08:14] LABS: POTASSIUM 3.7 mmol/L (3.5-5.1)
[2023-12-26 08:17] LABS: CALCIUM 8.6 mg/dL (8.5-10.1)
[2023-12-26 08:18] LABS: ALBUMIN 3.1 g/dl (3.4-5.0); MAGNESIUM 1.8 mg/dL (1.8-2.4)
[2023-12-26 08:22] LABS: BASO % 1.3 % (0-2.0); EOS % 4.1 % (0-4.5); HEMATOCRIT 32.9 % (32.4-45.2); HEMOGLOBIN 11.3 GM/dL (10.7-15.3); LYMPH % 26.7 % (8-40); MCH 32.1 pg (25.7-33.7); MCHC 34.5 g/dl (32.0-36.0); MEAN CELL VOLUME 93.2 fl (80-96); MEAN PLT VOLUME 7.7 fl (7.5-11.1); MONO % 10.3 % (3.8-10.2); NEUT % 57.6 % (42.8-82.8); PLATELET COUNT 196 10^3/uL (134-434); RBC 3.53 M/mm3 (3.60-5.2); WHITE BLOOD COUNT 4.2 K/mm3 (4.0-10.0)
[2023-12-26 08:23] LABS: BILIRUBIN,TOTAL 0.4 mg/dL (0.2-1); TOT PROT 6.3 g/dl (6.4-8.2)
[2023-12-26] MEDS: KETOROLAC TROMETHAMINE 10 MG TABLET PO PRN (11:52)
[2023-12-27 08:42] LABS: BASO % 1.2 % (0-2.0); EOS % 3.7 % (0-4.5); HEMATOCRIT 32.8 % (32.4-45.2); HEMOGLOBIN 11.4 GM/dL (10.7-15.3); LYMPH % 16.9 % (8-40); MCH 32.3 pg (25.7-33.7); MCHC 34.9 g/dl (32.0-36.0); MEAN CELL VOLUME 92.6 fl (80-96); MONO % 10.4 % (3.8-10.2); NEUT % 67.8 % (42.8-82.8); PLATELET COUNT 180 10^3/uL (134-434); RBC 3.54 M/mm3 (3.60-5.2); RDW 12.8 % (11.6-15.6); WHITE BLOOD COUNT 4.1 K/mm3 (4.0-10.0)
[2023-12-27 09:08] LABS: POTASSIUM 3.9 mmol/L (3.5-5.1)
[2023-12-27 09:18] LABS: ALBUMIN 3.1 g/dl (3.4-5.0); BLOOD UREA NITROGEN 19.4 mg/dL (7-18); CALCIUM 8.9 mg/dL (8.5-10.1)
[2023-12-27 09:21] LABS: CREATININE 1.1 mg/dL (0.55-1.3)
[2023-12-27 09:23] LABS: BILIRUBIN,TOTAL 0.4 mg/dL (0.2-1); TOT PROT 6.2 g/dl (6.4-8.2)
[2023-12-27] MEDS: MECLIZINE HCL 12.5 MG TABLET PO SCH (09:57)
[2023-12-28 07:50] LABS: BASO % 1.1 % (0-2.0); EOS % 1.5 % (0-4.5); HEMATOCRIT 32.8 % (32.4-45.2); HEMOGLOBIN 11.1 GM/dL (10.7-15.3); LYMPH % 15.2 % (8-40); MCH 31.8 pg (25.7-33.7); MEAN CELL VOLUME 93.5 fl (80-96); MEAN PLT VOLUME 7.8 fl (7.5-11.1); MONO % 13.2 % (3.8-10.2); PLATELET COUNT 177 10^3/uL (134-434); WHITE BLOOD COUNT 4.4 K/mm3 (4.0-10.0)
[2023-12-28 08:12] LABS: BLOOD UREA NITROGEN 21.9 mg/dL (7-18)
[2023-12-28 08:15] LABS: CREATININE 1.2 mg/dL (0.55-1.3)
[2023-12-28 08:17] LABS: BILIRUBIN,TOTAL 0.4 mg/dL (0.2-1); TOT PROT 6.2 g/dl (6.4-8.2)
[2023-12-28 12:31] LABS: EPI CELLS 11 /uL (0-25.1); HYALINE CASTS 0 /uL (0-3.1); PH,URINE 5.5 (5.0-8.0); URINE APPEARANCE CLEAR; URINE BACTERIA 37 /uL (0-1359); URINE BILIRUBIN NEGATIVE (NEGATIVE); URINE COLOR YELLOW; URINE GLUCOSE (UA) NEGATIVE (NEGATIVE); URINE KETONE NEGATIVE (NEGATIVE); URINE LEUK ESTERASE NEGATIVE (NEGATIVE); URINE NITRITE NEGATIVE (NEGATIVE); URINE PROTEIN NEGATIVE (NEGATIVE); URINE RBC 19 /uL (0-23.9); URINE UROBILINOGEN 0.2 mg/dL (0.2-1.0); URINE WBC 8 /uL (0-25.8)
[2023-12-28] MEDS: DOCUSATE SODIUM 100 MG CAPSULE (FP) PO SCH (13:42)
[2023-12-28] MEDS: POLYETHYLENE GLYCOL (HEALTHYLAX) 3350 17 GM PACKET PO ONE (13:42)
[2023-12-28] MEDS: REMDESIVIR 200 MG in SODIUM CHLORIDE 250 ML IVPB ONE (18:26)
[2023-12-29 09:41] LABS: BASO % 1.2 % (0-2.0); EOS % 4.4 % (0-4.5); HEMATOCRIT 32.6 % (32.4-45.2); HEMOGLOBIN 10.9 GM/dL (10.7-15.3); LYMPH % 23.9 % (8-40); MCH 31.5 pg (25.7-33.7); MCHC 33.5 g/dl (32.0-36.0); MONO % 16.7 % (3.8-10.2); NEUT % 53.8 % (42.8-82.8); PLATELET COUNT 183 10^3/uL (134-434); RBC 3.47 M/mm3 (3.60-5.2); RDW 12.9 % (11.6-15.6); WHITE BLOOD COUNT 3.3 K/mm3 (4.0-10.0)
[2023-12-29 09:57] LABS: POTASSIUM 4.2 mmol/L (3.5-5.1)
[2023-12-29 10:01] LABS: BLOOD UREA NITROGEN 18.6 mg/dL (7-18); CALCIUM 8.9 mg/dL (8.5-10.1)
[2023-12-29 10:02] LABS: MAGNESIUM 2.1 mg/dL (1.8-2.4)
[2023-12-29 10:06] LABS: BILIRUBIN,TOTAL 0.2 mg/dL (0.2-1); TOT PROT 6.4 g/dl (6.4-8.2)
[2023-12-29] MEDS: REMDESIVIR 100 MG in SODIUM CHLORIDE 250 ML IVPB SCH (17:41)
[2023-12-30 08:32] LABS: BASO % 1.2 % (0-2.0); EOS % 5.2 % (0-4.5); HEMATOCRIT 33.1 % (32.4-45.2); HEMOGLOBIN 11.2 GM/dL (10.7-15.3); LYMPH % 29.4 % (8-40); MCH 31.8 pg (25.7-33.7); MCHC 33.9 g/dl (32.0-36.0); MEAN CELL VOLUME 93.8 fl (80-96); MEAN PLT VOLUME 7.8 fl (7.5-11.1); MONO % 11.6 % (3.8-10.2); NEUT % 52.6 % (42.8-82.8); PLATELET COUNT 187 10^3/uL (134-434); RBC 3.52 M/mm3 (3.60-5.2); RDW 12.8 % (11.6-15.6); WHITE BLOOD COUNT 3.3 K/mm3 (4.0-10.0)
[2023-12-30 08:48] LABS: POTASSIUM 3.8 mmol/L (3.5-5.1)
[2023-12-30 08:52] LABS: CALCIUM 9.1 mg/dL (8.5-10.1)
[2023-12-30 08:53] LABS: BLOOD UREA NITROGEN 17.9 mg/dL (7-18); MAGNESIUM 2.1 mg/dL (1.8-2.4)
[2023-12-30 08:57] LABS: BILIRUBIN,TOTAL 0.3 mg/dL (0.2-1); TOT PROT 6.3 g/dl (6.4-8.2)
[2023-12-31 08:48] LABS: BASO % 1.5 % (0-2.0); EOS % 5.5 % (0-4.5); HEMATOCRIT 32.9 % (32.4-45.2); HEMOGLOBIN 11.4 GM/dL (10.7-15.3); LYMPH % 38.9 % (8-40); MCH 32.1 pg (25.7-33.7); MCHC 34.6 g/dl (32.0-36.0); MEAN CELL VOLUME 92.8 fl (80-96); MONO % 9.1 % (3.8-10.2); PLATELET COUNT 215 10^3/uL (134-434); RBC 3.55 M/mm3 (3.60-5.2); WHITE BLOOD COUNT 3.3 K/mm3 (4.0-10.0)
[2023-12-31 09:08] LABS: POTASSIUM 3.9 mmol/L (3.5-5.1)
[2023-12-31 09:18] LABS: ALBUMIN 3.1 g/dl (3.4-5.0); BLOOD UREA NITROGEN 18.9 mg/dL (7-18)
[2023-12-31 09:20] LABS: BILIRUBIN,TOTAL 0.4 mg/dL (0.2-1); TOT PROT 6.4 g/dl (6.4-8.2)
[2023-12-31 09:21] LABS: CALCIUM 8.8 mg/dL (8.5-10.1); MAGNESIUM 2.1 mg/dL (1.8-2.4)
[2023-12-31] MEDS: guaiFENesin 200 MG/10 ML 10 ML UNIT-DOSE CUPS PO PRN (16:41)
[2023-12-31 22:21] VITALS: RESP 18
[2024-01-01 05:53] VITALS: BP 117/63; PULSE 61; TEMP 98.4
[2024-01-01 08:36] LABS: BASO % 2.9 % (0-2.0); EOS % 5.8 % (0-4.5); HEMATOCRIT 35.6 % (32.4-45.2); HEMOGLOBIN 12.1 GM/dL (10.7-15.3); LYMPH % 41.3 % (8-40); MCHC 33.9 g/dl (32.0-36.0); MEAN CELL VOLUME 94.3 fl (80-96); MEAN PLT VOLUME 7.8 fl (7.5-11.1); MONO % 9.3 % (3.8-10.2); NEUT % 40.7 % (42.8-82.8); PLATELET COUNT 245 10^3/uL (134-434); RBC 3.77 M/mm3 (3.60-5.2); RDW 13.1 % (11.6-15.6); WHITE BLOOD COUNT 3.4 K/mm3 (4.0-10.0)
[2024-01-01 08:49] LABS: ALBUMIN 3.4 g/dl (3.4-5.0); BLOOD UREA NITROGEN 17.3 mg/dL (7-18); MAGNESIUM 2.2 mg/dL (1.8-2.4)
[2024-01-01 08:52] LABS: CREATININE 1.1 mg/dL (0.55-1.3)
[2024-01-01 08:59] LABS: BILIRUBIN,TOTAL 0.4 mg/dL (0.2-1)
== END 2024-01-01 14:34 | DRG 178 ==
LOC: JER 11:08 → JERBED 16:38 → J7W 12-24 10:50 → OBSVTOIN 12-29 17:54
PROVIDERS: ADMIT Internal Medicine; ATTEND Nurse Practitioner Family
PROC: XW033E5 Introduction of Remdesivir Anti-infective into Peripheral Vein, Percutaneous Approach, New Technology Group 5 (ICD-10-PCS; principal; 2023-12-29)
DX: U07.1 COVID-19 (principal); I50.32 Chronic diastolic (congestive) heart failure; R42 Dizziness and giddiness; I11.0 Hypertensive heart disease with heart failure; M19.011 Primary osteoarthritis, right shoulder
CPT/HCPCS: 0241U-QW; 36415; 70450-TC; 71045-TC-FY; 72125-TC; 73030-TC-RT-FY; 80048; 80053; 81003; 83735; 83880; 85025; 87086; 87635; 93005; 93010; 93306-TC; 94010; 97116-GP; 97162-GP; 99285-25; G0378; J0131; J0248; J1644

== ENCOUNTER 2024-04-15 13:05 | Emergency (ER) | payer OTHER ==
[2024-04-15 13:45] VITALS: BMI 20.8
[2024-04-15] MEDS ORDERED: ACETAMINOPHEN INJECTION 100 ML ONE (14:15)
[2024-04-15] MEDS: ACETAMINOPHEN 1000 MG/100 ML BAG IVPB ONE (14:29)
[2024-04-15 14:35] LABS: BASO % 2.7 % (0-2.0); EOS % 4.4 % (0-4.5); HEMATOCRIT 33.9 % (32.4-45.2); HEMOGLOBIN 11.7 GM/dL (10.7-15.3); LYMPH % 30.8 % (8-40); MCH 31.8 pg (25.7-33.7); MCHC 34.5 g/dl (32.0-36.0); MEAN CELL VOLUME 92.1 fl (80-96); MEAN PLT VOLUME 7.3 fl (7.5-11.1); MONO % 9.9 % (3.8-10.2); NEUT % 52.2 % (42.8-82.8); PLATELET COUNT 197 10^3/uL (134-434); RBC 3.68 M/mm3 (3.60-5.2); RDW 13.4 % (11.6-15.6); WHITE BLOOD COUNT 3.7 K/mm3 (4.0-10.0)
[2024-04-15 14:40] LABS: INR 1.01 (0.83-1.09); PROTHROMBIN TIME (PATIENT) 11.6 SEC (9.7-13.0)
[2024-04-15 14:43] LABS: ACTIVATED PTT 31.8 SECONDS (25.2-36.5)
[2024-04-15 14:47] LABS: POTASSIUM 4.5 mmol/L (3.5-5.1)
[2024-04-15 14:49] LABS: ALBUMIN 3.9 g/dl (3.4-5.0); BLOOD UREA NITROGEN 26.9 mg/dL (7-18); CALCIUM 9.6 mg/dL (8.5-10.1)
[2024-04-15 14:53] LABS: CREATININE 1.4 mg/dL (0.55-1.3)
[2024-04-15 14:55] LABS: BILIRUBIN,TOTAL 0.5 mg/dL (0.2-1); TOT PROT 7.6 g/dl (6.4-8.2)
[2024-04-15] MEDS: LACTATED RINGERS SOLUTION 1000 ML INFUS.BAG IV ONE (16:07)
[2024-04-15 17:49] VITALS: BP 121/65; PULSE 62; RESP 16; TEMP 98.1
[2024-04-15] MEDS: LABETALOL HCL 5 MG/1 ML (100MG/20 ML VIAL) IVPUSH ONE (17:51)
[2024-04-15] MEDS ORDERED: traMADol HCL 50 MG TABLET ONE (17:52)
[2024-04-15] MEDS: traMADol HCL 50 MG TABLET PO ONE (17:55)
== END 2024-04-15 20:18 | disposition home or self-care (01) ==
LOC: JER 13:05
PROC: 3E033NZ Introduction of Analgesics, Hypnotics, Sedatives into Peripheral Vein, Percutaneous Approach (ICD-10-PCS; principal; 2024-04-15)
DX: E86.0 Dehydration (principal); R07.9 Chest pain, unspecified; M25.512 Pain in left shoulder; M54.9 Dorsalgia, unspecified; Z20.822 Contact with and (suspected) exposure to COVID-19; W01.0XXA Fall on same level from slipping, tripping and stumbling without subsequent striking against object, initial encounter
CPT/HCPCS: 0241U-QW; 36415; 71045-TC-FY; 73030-TC-LT-FY; 73030-TC-RT-FY; 80053; 84484; 85025; 85610; 85730; 93005; 93010; 96374; 99285-25; J0131

== ENCOUNTER 2024-04-17 18:31 | Emergency (ER) | payer OTHER ==
[2024-04-17 18:57] VITALS: BMI 26.2
[2024-04-17] MEDS ORDERED: ONDANSETRON 4 MG/2 ML VIAL ONE (20:26)
[2024-04-17] MEDS ORDERED: ACETAMINOPHEN INJECTION 100 ML ONE (20:26)
[2024-04-17] MEDS ORDERED: FAMOTIDINE 20 MG/50 ML IVPB 20 MG/50 ML MG IVPB ONE (20:26)
[2024-04-17 20:29] LABS: BASO % 1.4 % (0-2.0); EOS % 2.4 % (0-4.5); HEMATOCRIT 34.4 % (32.4-45.2); HEMOGLOBIN 11.5 GM/dL (10.7-15.3); LYMPH % 36.4 % (8-40); MCH 30.9 pg (25.7-33.7); MCHC 33.4 g/dl (32.0-36.0); MEAN CELL VOLUME 92.5 fl (80-96); MEAN PLT VOLUME 7.3 fl (7.5-11.1); NEUT % 52.8 % (42.8-82.8); PLATELET COUNT 206 10^3/uL (134-434); RBC 3.72 M/mm3 (3.60-5.2); RDW 13.6 % (11.6-15.6); WHITE BLOOD COUNT 4.1 K/mm3 (4.0-10.0)
[2024-04-17] MEDS: ONDANSETRON 4 MG/2 ML VIAL IVPUSH ONE (20:34)
[2024-04-17] MEDS: ACETAMINOPHEN 1000 MG/100 ML BAG IVPB ONE (20:34)
[2024-04-17] MEDS: FAMOTIDINE 20 MG/50 ML IVPB 20 MG/50 ML MG IVPB ONE (20:34)
[2024-04-17] MEDS: SODIUM CHLORIDE 0.9% 500 ML INFUS.BAG IV ONE (20:34)
[2024-04-17 20:41] LABS: INR 0.98 (0.83-1.09); PROTHROMBIN TIME (PATIENT) 11.3 SEC (9.7-13.0)
[2024-04-17 20:42] LABS: ACTIVATED PTT 25.8 SECONDS (25.2-36.5)
[2024-04-17 20:49] LABS: POTASSIUM 3.9 mmol/L (3.5-5.1)
[2024-04-17 20:51] LABS: ALBUMIN 3.8 g/dl (3.4-5.0); BLOOD UREA NITROGEN 16.3 mg/dL (7-18); CALCIUM 9.7 mg/dL (8.5-10.1)
[2024-04-17 20:55] LABS: CREATININE 1.3 mg/dL (0.55-1.3)
[2024-04-17 20:56] LABS: BILIRUBIN,TOTAL 0.5 mg/dL (0.2-1)
[2024-04-18 03:58] VITALS: BP 121/61; PULSE 60; RESP 16; TEMP 97.2
== END 2024-04-18 04:32 | disposition home or self-care (01) ==
LOC: JER 18:31
PROC: 3E033GC Introduction of Other Therapeutic Substance into Peripheral Vein, Percutaneous Approach (ICD-10-PCS; principal; 2024-04-17)
PROC: 3E033NZ Introduction of Analgesics, Hypnotics, Sedatives into Peripheral Vein, Percutaneous Approach (ICD-10-PCS; 2024-04-17)
PROC: 3E033GC Introduction of Other Therapeutic Substance into Peripheral Vein, Percutaneous Approach (ICD-10-PCS; 2024-04-17)
DX: R10.84 Generalized abdominal pain (principal); R11.2 Nausea with vomiting, unspecified; R19.7 Diarrhea, unspecified
CPT/HCPCS: 36415; 73030-TC-RT-FY; 74177-TC; 76705-TC; 80053; 82962; 83605; 83690; 84484; 85025; 85610; 85730; 86850; 86900; 86901; 93005; 93010; 99285-25; J0131